=== PATIENT | female | born 1965 | race African-American/Black ===

== ENCOUNTER 2022-06-20 13:48 | Emergency (ER) | payer SELFPAY ==
[~2022-06-20] VITALS: Ht 170.2 cm; Wt 104.3 kg
--- NOTE | 2022-06-20 14:10 | NUR ---
Patient walked into ER complaining of dehydration and nausea. Patient states she feels a little disoriented. She has been exhaused and stressed due to her workload. She states last time she felt this way she walked into an ER and was treated for dehydration.
--- NOTE | 2022-06-20 14:14 | NUR ---
Dr. Alan on bedside for MSE.
[2022-06-20] MEDS ORDERED: ONDANSETRON 4 MG/2 ML VIAL IV ONE (14:15)
[2022-06-20] MEDS ORDERED: IV NORMAL SALINE 1000 ML BAG IV ONE (14:15)
[2022-06-20] MEDS ORDERED: ONDANSETRON 4 MG/2 ML VIAL ONE (14:17)
[2022-06-20 14:56] LABS: HEMATOCRIT 40.8 % (31.2-41.9); MEAN CORPUSCULAR HEMOGLOBIN 31.5 uug (24.7-32.8); MEAN CORPUSCULAR VOLUME 92.7 fL (75.5-95.3); PLATELET COUNT (AUTO) 351 K/uL (179-408)
[2022-06-20 15:04] LABS: CARBON DIOXIDE 29 mmol/L (21-32); CHLORIDE 102 mmol/L (98-107); GLUCOSE 179 mg/dL (74-106); POTASSIUM 3.9 mmol/L (3.5-5.1); UREA NITROGEN, BLOOD 12 mg/dL (7-18)
[2022-06-20 15:10] LABS: ALANINE AMINOTRANSFERASE 67 U/L (14-59); ALKALINE PHOSPHATASE 128 U/L (50-136); ASPARTATE AMINOTRANSFERASE 28 U/L (15-37); BILIRUBIN,DIRECT < 0.1 mg/dL (0.0-0.2); BILIRUBIN,TOTAL 0.3 mg/dL (0.2-1.0); LIPASE 85 U/L (73-393); TOTAL PROTEIN, SERUM 8.3 g/dL (6.4-8.2)
[2022-06-20] MEDS ORDERED: ONDA4TAB11 PO (15:22)
--- NOTE | 2022-06-20 15:45 | NUR ---
Patient discharged to home in stable condition. Written and verbal after care instructions given. Patient verbalizes understanding of instructions. Stressed follow up or return to ER for worsening s/s. Patient ambulated fr the ER with steady gait. All belongings with patient.
[2022-06-20 15:46] VITALS: BP 139/82
== END 2022-06-20 15:45 | disposition home or self-care (01) ==
LOC: ER 13:48
DX: R11.0 Nausea (principal); R73.03 Prediabetes
CPT/HCPCS: 99284; 96374; 96361; 80076; 80048; 83690; 85025; J2405; J7040; 36415; A4663